=== PATIENT | male | born 1955 | race Caucasian/White ===

== ENCOUNTER 2018-10-29 05:34 | Day surgery (SDC) | payer MEDICARE, OTHER ==
[2018-10-29] MEDS: LACTATED RINGERS 1,000 ML ONE ×2 (07:40→08:00)
--- NOTE | 2018-10-29 09:16 | OP ---
DATE OF PROCEDURE: 10/29/18 PREPROCEDURE DIAGNOSIS: 1. Average risk colorectal cancer screening. 2. This is the patient's first colonoscopy. POSTPROCEDURE DIAGNOSIS: 1. Colonic polyps. 2. Diverticulosis. 3. Internal hemorrhoids. PROCEDURE: 1. Colonoscopy with snare polypectomy. SURGEON: Shmuel Chaudhari MD. SEDATION: Monitored anesthesia care. ESTIMATED BLOOD LOSS: Less than 5 mL. PROCEDURE: Informed consent was obtained prior to sedation. The preprocedure cardiopulmonary assessment was satisfactory. The patient was brought to the Endoscopy Suite and placed in the left lateral decubitus position. The patient was then sedated by the anesthesia team. Digital rectal and perianal exams were normal. The tip of the Olympus colonoscope was inserted into the rectum and advanced under direct visualization to the cecum as identified by the presence of the appendiceal orifice and ileocecal valve. Preparation of the colon was good. Upon reaching the cecum, the endoscope was slowly withdrawn. In the ascending colon, there was a 4 mm flat polyp which was resected with cold snare polypectomy, but not retrieved. In the ascending and sigmoid colon, there were multiple small diverticula. In the sigmoid colon, there was 2 cm pedunculated polyp. This was resected with hot snare polypectomy and retrieved for pathology. In the proximal rectum, there was a 6 mm sessile polyp. This was resected with cold snare polypectomy and retrieved for pathology. Retroflexed view of the anal verge showed medium sized, non-bleeding internal hemorrhoids. The endoscope was then withdrawn from the patient and the procedure terminated. RECOMMENDATION: 1. Discharge the patient home with escort. 2. Resume regular diet. 3. Continue present medications. 4. Followup pathology. 5. Surveillance colonoscopy due in 3 years. 6. Followup with primary care physician as previously scheduled. #[id number] [id number]
[2018-10-29] MEDS ORDERED: LIDOCAINE 1% 10 ML VIAL INJ ONE (10:00)
[2018-10-29] MEDS ORDERED: PROPOFOL 200 MG/20 ML VIAL IV ONE (10:00)
[2018-10-29 13:42] VITALS: O2SAT 97
[2018-10-29 13:44] VITALS: BP 154/99; TEMP 97.1
== END 2018-10-29 09:55 | disposition home or self-care (01) ==
LOC: AMB 05:34
PROVIDERS: ATTEND Internal Medicine Gastroenterology
DX: Z12.11 Encounter for screening for malignant neoplasm of colon (principal); D12.7 Benign neoplasm of rectosigmoid junction; D12.5 Benign neoplasm of sigmoid colon; K57.30 Diverticulosis of large intestine without perforation or abscess without bleeding; K64.8 Other hemorrhoids; I10 Essential (primary) hypertension; E78.00 Pure hypercholesterolemia, unspecified; J45.909 Unspecified asthma, uncomplicated; N40.0 Benign prostatic hyperplasia without lower urinary tract symptoms; K21.9 Gastro-esophageal reflux disease without esophagitis; Z87.891 Personal history of nicotine dependence; Z88.0 Allergy status to penicillin; Z79.899 Other long term (current) drug therapy
CPT/HCPCS: 00812; 45385; 88305; J3490; J7120

== ENCOUNTER → 2019-01-05 | Outpatient (CLI) | payer MEDICARE, OTHER | LOC: GMA MATASK 17:06 | PROVIDERS: ATTEND Family Medicine | DX: J44.9 Chronic obstructive pulmonary disease, unspecified (principal) ==

== ENCOUNTER → 2019-11-12 | Outpatient (CLI) | payer MEDICARE, OTHER | LOC: YCFC.O 10:28 | PROVIDERS: ATTEND Nurse Practitioner | DX: Z20.828 Contact with and (suspected) exposure to other viral communicable diseases (principal) ==

== ENCOUNTER → 2019-12-02 | Outpatient (CLI) | payer MEDICARE, OTHER | LOC: GMA MATASK 17:12 | PROVIDERS: ATTEND Family Medicine | DX: Z12.5 Encounter for screening for malignant neoplasm of prostate (principal) ==